=== PATIENT | male | born 1955 | race Caucasian/White ===

== ENCOUNTER 2020-09-10 00:09 | Outpatient (CLI) | payer OTHER, SELFPAY ==
[2020-09-10 19:24] LABS: SARS-CoV-2 RNA PCR Negative
== END 2020-09-10 00:10 | disposition home or self-care (01) ==
LOC: ANHCOVIDDT 00:09
PROVIDERS: PCP Student in an Organized Health Care Education/Training Program; Visit Provider Internal Medicine Gastroenterology
DX: Z01.818 Encounter for other preprocedural examination (principal); Z20.828 Contact with and (suspected) exposure to other viral communicable diseases
CPT/HCPCS: 87635; C9803; U0003

== ENCOUNTER 2020-09-13 00:50 | Day surgery (SDC) | payer OTHER, SELFPAY ==
[2020-09-07 10:48] VITALS: BMI 26.6
[2020-09-13 07:59] VITALS: BP 139/67; PULSE 71; RESP 22; TEMP 36.4; O2SAT 99; BMI 25.9
[2020-09-13] MEDS: LACTATED RINGERS 1,000 ML 150 ML IV CONT (08:15)
[2020-09-13 08:18] LABS: Glucose Point of Care 132 (65-105)
--- NOTE | 2020-09-13 08:31 | WPDANESEPPF ---
Anes - Initial Pre Proc Eval Procedure: Operation Date: 09/13/20 09:15 Proposed Procedures p Screening Colonoscopy - Mike Betancur MD Date/Time: 09/13/20 08:31 Surgeon: Mike Betancur MD Pre Op Diagnosis: hx of polyps Patient Data Age: 64 Gender: M Height: 5 ft 9 in Weight: 79.6 kg Last Vital Signs Temp 97.5 F L 09/13/20 07:59 Pulse 71 09/13/20 07:59 Resp 22 H 09/13/20 07:59 BP 139/67 09/13/20 07:59 Pulse Ox 99 09/13/20 07:59 Allergies Allergy/AdvReac Type Severity Reaction Status Date / Time No Known Allergies Allergy Verified 09/13/20 07:58 Home Medications Medication Instructions Recorded Confirmed Type peg 3350-electrolytes 236 240 ml PO Q10M #4000 ml 08/24/20 Rx gram-22.74 gram-6.74 gram-5.86 gram solution aspirin [Adult Low Dose Aspirin] 81 mg PO DAILY 09/07/20 09/07/20 History cyclobenzaprine 5 mg PO DAILY PRN 09/07/20 09/07/20 History gabapentin 300 mg PO DAILY PRN 09/07/20 09/07/20 History losartan 50 mg PO DAILY 09/07/20 09/07/20 History metformin 1,000 mg PO DAILY 09/07/20 09/07/20 History pedi multivit no.140-iron fum 1 tablet PO DAILY 09/07/20 09/07/20 History [Child Chewable Vitamn Complete] simvastatin 20 mg PO HS 09/07/20 09/07/20 History Laboratory Tests 09/13/20 08:14 POC Capillary Glucose 132 mg/dl H mg/dl (65-105) Patient hx anesthesia problems: none Family hx anesthesia problems: none PMFSH Past Medical History Medical History (Updated 09/13/20 @ 08:08 by Linwood Schuster MD) Diabetes GERD (gastroesophageal reflux disease) Hyperlipidemia Hypertension Social History Social History Smoking packs per day: 1 Smoking cigarettes per day: 20.0 Years smoked: 10 Smoking pack-years: 10.00 Smoking status: Former smoker Tobacco type: cigarettes Alcohol intake: current Drinks per week: 3 Alcohol use details: BEERS Substance use: never Substance use type: does not use Living arrangements: with family Spiritual care concerns: Yes (NO BLOOD) Anes - Eval Final PreProcedure Day of Procedure 09/13/20 08:31 Patient weight: overweight Heart: regular rate and rhythm Lungs: clear to auscultation Airway: Mallampati scale class II Neurological: alert and oriented Last oral intake: >/= 8 hours ASA classification: III Emergent: no Anesthetic plan: proceed Anesthesia type and monitoring: general Informed Consent: The patient's anesthetic plan and its attendant risks and benefits were discussed with the patient/family/POA. Questions were solicited and answers provided to the satisfaction of the patient/family/POA.
--- NOTE | 2020-09-13 08:37 | PM.HPGS ---
History of Present Illness History of Present Illness Consent: Risks, benefits, and alternatives have been discussed and questions answered. Patient agrees to proceed with procedure. Chief complaint: hx of polyps Narrative: Shailesh Corona is a 64 year old male with colon polyps 5 years ago. Review of Systems Constitutional: Constitutional: Denies headache(s) and Denies weakness Eyes: Eyes: Denies blurry vision ENT: Reports Normal hearing present, Denies headache(s) and Denies neck pain Cardiovascular: Cardiovascular: Denies chest pain and Denies dyspnea Respiratory: Respiratory: Denies dyspnea Gastrointestinal: Gastrointestinal: Reports no additional gastrointestinal complaints Genitourinary: Genitourinary: Denies dysuria Musculoskeletal: Musculoskeletal: Denies neck pain Integumentary/Breasts: Skin/Breast: Denies dry skin Neurologic: Reports Normal hearing present, Denies headache(s) and Denies weakness Psychiatric: Psychiatric: Denies anxiety Endocrine: Endocrine: Denies change in body appearance Hematologic/Lymphatic: Hematologic/Lymphatic: Denies easy bleeding Allergic/Immunologic: Allergic/Immunologic: Denies urticaria PMFSH Past Medical History Medical History (Updated 09/13/20 @ 08:38 by Mike Betancur MD) Adenomatous colon polyp Diabetes GERD (gastroesophageal reflux disease) Hyperlipidemia Hypertension Social History Social History Smoking packs per day: 1 Smoking cigarettes per day: 20.0 Years smoked: 10 Smoking pack-years: 10.00 Smoking status: Former smoker Tobacco type: cigarettes Alcohol intake: current Drinks per week: 3 Alcohol use details: [place] Substance use: never Substance use type: does not use Living arrangements: with family Spiritual care concerns: Yes (NO BLOOD) Meds Home Medications and Allergies Home Medications Medication Instructions Recorded Confirmed Type peg 3350-electrolytes 236 240 ml PO Q10M #4000 ml 08/24/20 Rx gram-22.74 gram-6.74 gram-5.86 gram solution aspirin [Adult Low Dose Aspirin] 81 mg PO DAILY 09/07/20 09/07/20 History cyclobenzaprine 5 mg PO DAILY PRN 09/07/20 09/07/20 History gabapentin 300 mg PO DAILY PRN 09/07/20 09/07/20 History losartan 50 mg PO DAILY 09/07/20 09/07/20 History metformin 1,000 mg PO DAILY 09/07/20 09/07/20 History pedi multivit no.140-iron fum 1 tablet PO DAILY 09/07/20 09/07/20 History [Child Chewable Vitamn Complete] simvastatin 20 mg PO HS 09/07/20 09/07/20 History Allergies Allergy/AdvReac Type Severity Reaction Status Date / Time No Known Allergies Allergy Verified 09/13/20 07:58 Vital Signs Vital Signs - 24 hr 09/13/20 07:59 Temperature 97.5 F L Pulse Rate 71 Respiratory Rate 22 H Blood Pressure 139/67 Pulse Oximetry 99 Exam Const: General: comfortable and no acute distress HENMT: General nose exam: Normal nares present Eyes: General: appearance normal, both eyes and all related structures Neck: Neck: no JVD Resp: Auscultation: clear to auscultation bilaterally Cardio: Rate: regular rate Rhythm: regular rhythm GI: Inspection: non-distended GI Palp: Yes Soft to palpation Skin: General skin exam: normal color Neuro: General: gait normal Speech: normal speech Extrem: General: normal to inspection Psych: Mental Status: mental status grossly normal Assessment and Plan Assessment and plan (1) Adenomatous colon polyp: Code(s): D12.6 - Benign neoplasm of colon, unspecified Status: Acute Assessment and Plan: will proceed with colonoscopy
[2020-09-13 09:01] VITALS: BP 108/67; PULSE 75; RESP 22; O2SAT 96
[2020-09-13 09:11] VITALS: BP 118/67; PULSE 71; RESP 20; O2SAT 98
[2020-09-13 09:21] VITALS: BP 118/67; PULSE 69; RESP 18; O2SAT 99
== END 2020-09-13 09:35 | disposition home or self-care (01) ==
PROVIDERS: PCP Student in an Organized Health Care Education/Training Program; Visit Provider Internal Medicine Gastroenterology
PROC: 0DJD8ZZ Inspection of Lower Intestinal Tract, Via Natural or Artificial Opening Endoscopic (ICD-10-PCS; CPT 45378; principal; 2020-09-13 09:15)
DX: Z12.11 Encounter for screening for malignant neoplasm of colon (principal); K57.30 Diverticulosis of large intestine without perforation or abscess without bleeding; K64.8 Other hemorrhoids; Z86.010 Personal history of colon polyps; E11.9 Type 2 diabetes mellitus without complications; K21.9 Gastro-esophageal reflux disease without esophagitis; E78.5 Hyperlipidemia, unspecified; I10 Essential (primary) hypertension; Z79.84 Long term (current) use of oral hypoglycemic drugs; Z79.82 Long term (current) use of aspirin; Z87.891 Personal history of nicotine dependence
CPT/HCPCS: 45378; J2704; J7120